=== PATIENT | male | born 1960 | race Two or more races ===

== ENCOUNTER 2024-02-07 15:25 | Emergency (ER) | payer OTHER ==
[~2024-02-07] VITALS: Ht 175.3 cm; Wt 65.8 kg
[2024-02-07] MEDS ORDERED: DESCOVY 200-251 EACH PO (15:53)
[2024-02-07] MEDS ORDERED: CEFTRIAXONE SODIUM 1,000 MG VIAL IM ONE (17:00)
[2024-02-07] MEDS ORDERED: CEFTRIAXONE SODIUM 1,000 MG VIAL ONE (17:04)
[2024-02-07] MEDS ORDERED: TETANUS DIPHTHERIA TOX. ADSOR 5 ML VIAL IM ONE (17:04)
[2024-02-07] MEDS ORDERED: TETANUS & DIPHTHERIA TOX,ADULT 0.5 ML VIAL IM ONE (17:15)
[2024-02-07] MEDS ORDERED: CIPRO500 MG PO (18:14)
== END 2024-02-07 18:18 | disposition home or self-care (01) ==
LOC: ER 15:26
DX: S01.119A Laceration without foreign body of unspecified eyelid and periocular area, initial encounter (principal); S09.90XA Unspecified injury of head, initial encounter; W01.0XXA Fall on same level from slipping, tripping and stumbling without subsequent striking against object, initial encounter; Y93.89 Activity, other specified; Y92.89 Other specified places as the place of occurrence of the external cause; Y99.8 Other external cause status
CPT/HCPCS: 13152; 70450; 96372; 99284; J0696